=== PATIENT | female | born 1980 | race Caucasian/White ===

== ENCOUNTER 2018-01-24 05:28 | Inpatient (IN) | payer OTHER ==
[~2018-01-24] VITALS: Ht 180.3 cm; Wt 103.9 kg
[2018-01-26] MEDS ORDERED: PRENATAL 19 TA1 EACH PO (08:22)
== END 2018-01-26 12:30 | disposition home or self-care (01) | DRG 807 ==
LOC: LDR 05:28 → OB/GYN 18:54
PROC: 10E0XZZ Delivery of Products of Conception, External Approach (ICD-10-PCS; principal; 2018-01-24)
PROC: 4A1HXCZ Monitoring of Products of Conception, Cardiac Rate, External Approach (ICD-10-PCS; 2018-01-24)
PROC: 3E033VJ Introduction of Other Hormone into Peripheral Vein, Percutaneous Approach (ICD-10-PCS; 2018-01-24)
DX: O80 Encounter for full-term uncomplicated delivery (principal); Z37.0 Single live birth; Z3A.39 39 weeks gestation of pregnancy